=== PATIENT | female | born 1945 | race Caucasian/White ===

== ENCOUNTER → 2016-11-07 | Outpatient (CLI) | payer MEDICARE, OTHER ==
[~2016-11-07] VITALS: Ht 165.1 cm; Wt 88.6 kg
[~2016-11-07] MED LIST: ATACAND32 MG PO; CALCIUM 600/VIT1 CAP PO; FOLIC ACID 40400 MCG PO; HUMIRA40 MG/0.8 SQ; MASON NATURAL2000 IU PO; MULTI VITAMINS1 TAB PO; NATURAL E400 IU PO; PRILOSEC 20MG20 MG PO; THE MEDICINE S200 M2 PO; TREXALL10 MG PO; VYTORIN 10 MG-21 TAB PO
[2016-11-07 06:01] VITALS: BP 163/84; PULSE 64
[2016-11-07 07:35] VITALS: BP 180/90; PULSE 61
[2016-11-07 07:38] VITALS: BP 180/92; PULSE 102
[2016-11-07 07:40] VITALS: BP 178/88; PULSE 81
== END ==
LOC: COL.CARD 05:45
DX: I25.10 Atherosclerotic heart disease of native coronary artery without angina pectoris (principal); K21.9 Gastro-esophageal reflux disease without esophagitis; E78.00 Pure hypercholesterolemia, unspecified; I10 Essential (primary) hypertension; M06.9 Rheumatoid arthritis, unspecified
CPT/HCPCS: A9502; J2785

== ENCOUNTER → 2018-01-23 | Outpatient (CLI) | payer MEDICARE, OTHER | LOC: MC.RAD 14:25 | DX: Z12.31 Encounter for screening mammogram for malignant neoplasm of breast (principal) ==

== ENCOUNTER 2018-05-27 15:46 | Day surgery (SDC) | payer MEDICARE, OTHER ==
[~2018-05-27] VITALS: Ht 167.6 cm; Wt 90.9 kg
[~2018-05-27 15:46] MED LIST changes: +ATACAND HCT 321 TAB PO; -ATACAND32 MG PO; -CALCIUM 600/VIT1 CAP PO; +CALCIUM 600MG+D1 TAB PO; +FOLIC ACID 11 MG/TA1 PO; -FOLIC ACID 40400 MCG PO; +METHOTREXA2.5 MG/TAB PO; -TREXALL10 MG PO
[2018-05-27 16:48] VITALS: BP 168/71; PULSE 60; TEMP 97.7
--- NOTE | 2018-05-27 18:45 | NUR ---
Patient up to restroom without any difficulties or complications. Patient back to room and cart resting comfortably with spouse at bedside.
--- NOTE | 2018-05-27 19:40 | NUR ---
Patient resting comfortably in room with spouse at bedside. Patient report and care given to HARMONY Durbin. Patient is still waiting to go to surgery.
[2018-05-27 23:00] VITALS: BP 172/69; PULSE 64; TEMP 97.4
--- NOTE | 2018-05-27 23:00 | NUR ---
Pt. arrived to the floor from PACU. Pt. able to transfer from stetcher to bed with standby assist. Pt. is A&OX3, assessment complete. IV to lt. hand patent, IV fluids infusing per orders. Vital signs stable. Pt. reports pain at a 2 on pain scale, pt. denies need for pain meds at this time. Call light within reach.
[2018-05-27 23:15] VITALS: BP 156/58; PULSE 51
[2018-05-27 23:30] VITALS: BP 169/63; PULSE 52
[2018-05-28] VITALS: BP 156/68; PULSE 60
[2018-05-28 00:30] VITALS: BP 147/63; PULSE 52
--- NOTE | 2018-05-28 00:45 | NUR ---
Pt. has met discharge criteria. Pt. voided, tolerating po and ambulating. Vitals stable. Pt. reports pain at a 2, pt. denies need for pain meds. Pt. given discharge instructions, scripts, education, and health summary. Information reviewed with pt. and questions answered. Pt. denies further needs. INT discontinued from lt. hand. Pt. getting dressed will call when ready to go.
--- NOTE | 2018-05-28 01:00 | NUR ---
Pt. called. Pt. escorted out with wheelchair by SARMAD Mars.
== END 2018-05-28 01:00 | disposition home or self-care (01) ==
LOC: SDCO 15:46 → SURG 23:06 → SDCO 05-28 01:00
DX: N20.1 Calculus of ureter (principal); J30.9 Allergic rhinitis, unspecified; I10 Essential (primary) hypertension; K21.9 Gastro-esophageal reflux disease without esophagitis; E78.5 Hyperlipidemia, unspecified; E78.00 Pure hypercholesterolemia, unspecified; E11.9 Type 2 diabetes mellitus without complications; M06.861 Other specified rheumatoid arthritis, right knee; Z96.652 Presence of left artificial knee joint; Z79.82 Long term (current) use of aspirin; Z88.5 Allergy status to narcotic agent; Z82.3 Family history of stroke; Z83.3 Family history of diabetes mellitus; Z82.49 Family history of ischemic heart disease and other diseases of the circulatory system; Z82.61 Family history of arthritis; Z86.718 Personal history of other venous thrombosis and embolism
CPT/HCPCS: OP; C1769; C2617; J0360; J0690; J2405; J3010; J7120; Q9967

== ENCOUNTER 2018-12-19 10:30 | Inpatient (IN) | payer MEDICARE, OTHER ==
[~2018-12-19] VITALS: Ht 165.1 cm; Wt 88.9 kg
[2018-12-19] VITALS (107 sets, daily range): BP systolic 127–152; BP diastolic 54–75; PULSE 95–120; TEMP 98–102.9; O2SAT 95–99
[2018-12-19] MEDS ORDERED: SIMPONI50 MG/0.5 SC (15:16)
[2018-12-19] MEDS ORDERED: LEVAQUIN 5500 MG/TA1 PO (15:17)
[2018-12-19] MEDS ORDERED: NIZORAL CR 30GM TOP (15:18)
[2018-12-19] MEDS ORDERED: TEMOVATE0.052 TOP (15:19)
[2018-12-19 17:49] LABS: ALBUMIN 3.4 gm/dL (3.5-5.0); BILIRUBIN,TOTAL 0.8 mg/dL (0.0-1.0); CALCIUM 8.6 mg/dL (8.4-10.2); CREATININE, serum 0.84 (0.52-1.25); POTASSIUM 4.2 mmol/L (3.4-5.0); TOTAL PROTEIN 7.6 gm/dL (6.4-8.2)
[2018-12-19 17:54] LABS: BASO # 0.1 (0.0-0.2); BASO % 0.6 % (0.0-2.0); EOS % 0.4 % (0-4.0); GRAN # 5.4 (1.4-6.5); GRAN % 58.2 % (42.2-75.2); HEMATOCRIT 39.2 % (37.0-47.0); HEMOGLOBIN 12.7 g/dl (12.5-16.0); LYMPH % 31.7 % (20.0-51.0); MEAN CELL VOLUME 93 fl (80.0-100.0); MEAN CORPUSCULAR HEMOGLOBIN 30 pg (27.0-31.0); MEAN CORPUSCULAR HGB CONC 32 g/dl (33.0-37.0); MONO # 0.8 (0.1-0.6); MONO % 8.5 % (1.7-9.3); PLATELET COUNT 171 K/mm3 (130-400); RED BLOOD COUNT 4.22 M/mm3 (4.10-5.30); REDCELL DISTRIBUTION WIDTH-CV 15.3 % (11.5-14.5)
--- NOTE | 2018-12-19 18:00 | NUR ---
STARTED HEPARIN GTT, AND ADMINSITERED BOLUS. PT HAD NOT ISSUES. A BESIDE. PT AND EDUCATED ABOUT HEPARIN GTT. NO QUESTIONS OR ISSUES VOICED
[2018-12-19 18:05] LABS: PARTIAL THROMBOPLASTIN TIME 33.8 SECONDS (26.0-37.0)
--- NOTE | 2018-12-19 21:58 | NUR ---
Pt tranfered down from 308. Pt transfered to bed and placed on ICU monitors. Pt is SR on tele. Pt is afebrile and sating well on 4L NC. Pt is AxOx4. Pt oriented to room and ICU. Anca DEL CID and bedside to eval pt. Heparin drip running through L wrist IV at 15.5ml/hr. Will continue to monitor.
[2018-12-19 22:04] LABS: BASO # 0.1 (0.0-0.2); BASO % 0.7 % (0.0-2.0); EOS # 0.1 (0.0-0.7); EOS % 0.5 % (0-4.0); GRAN # 5.8 (1.4-6.5); GRAN % 55.3 % (42.2-75.2); LYMPH # 3.3 (1.2-3.4); LYMPH % 31.8 % (20.0-51.0); MEAN CELL VOLUME 91 fl (80.0-100.0); MEAN CORPUSCULAR HEMOGLOBIN 31 pg (27.0-31.0); MEAN CORPUSCULAR HGB CONC 33 g/dl (33.0-37.0); MEAN PLATELET VOLUME 10.8 fl (7.4-10.4); MONO # 1.2 (0.1-0.6); MONO % 11.1 % (1.7-9.3); PLATELET COUNT 190 K/mm3 (130-400); RED BLOOD COUNT 3.94 M/mm3 (4.10-5.30)
[2018-12-19 22:05] LABS: HEMATOCRIT 35.9 % (37.0-47.0)
[2018-12-19 22:11] LABS: ALANINE AMINOTRANSFERASE 51 U/L (9-52); ALKALINE PHOSPHATASE 92 U/L (50-136); ANION GAP 7 mmol/L (7-16); AST,SGOT 59 U/L (15-37); BILIRUBIN,TOTAL 0.8 mg/dL (0.0-1.0); BLOOD UREA NITROGEN 21 mg/dL (7-17); CALCIUM 8.5 mg/dL (8.4-10.2); CARBON DIOXIDE 24 mmol/L (22-30); CHLORIDE 101 mmol/L (98-107); CREATININE, serum 0.77 (0.52-1.25); GLUCOSE 101 mg/dL (74-106); MAGNESIUM 1.9 mg/dL (1.6-2.3); POTASSIUM 4.3 mmol/L (3.4-5.0); SODIUM 132 mmol/L (137-145); TOTAL PROTEIN 6.9 gm/dL (6.4-8.2)
[2018-12-19 22:24] LABS: TROPONIN-I < 0.012 ng/mL (0.000-0.035)
[2018-12-19 22:26] LABS: ARTERIAL BLD GAS O2 SATURATION 96.6 % (92-100); ARTERIAL BLD GAS TCO2 CT 23.6; ARTERIAL BLOOD GAS BASE EXCESS 0.2 (-2-2); ARTERIAL BLOOD GAS HCO3 22.6 meq/L (22-26); ARTERIAL BLOOD GAS PCO2 30.3 mmHg (35-45); ARTERIAL BLOOD GAS PO2 84.3 mmHg (80-100); ARTERIAL BLOOD GAS pH 7.49 (7.35-7.45)
--- NOTE | 2018-12-19 22:47 | NUR ---
1899: Patient siiting up in bed visiting with . Presents with relaxed body posture, mild increased work of breathing with respiratory rate 18-24bpm. Denies c/o shortness of breathe. Plan of care for the night to include management of heparin drip reviewed with patient and . All questions and concerns answered. 2024: Report from RT that patient was c/o increased work of breathing with O2 saturations in mid 80's on room air. 4LO2/NC applied. Tacycardic 115-125. RT reports improvement of O2 saturations in the mid 90"s 2039: See flow sheet for FVS obtained with temperature 102.9 orally, HR 120 (ST on telemetry). Patient presents as Tachypnic with respiratory rate 28-35bpm. Flushed. Petichial rash to bilateral U/L extremities. 2047: Call to Anca MACK notified of above documentation. Enroute to floor at this time. Orders received for Tylenol 650mg PO and Fluid bolus 1000ml over 1hr. Pumology/Allied Health Instructor notified by Anca MACK. notified by Provider. Order received to transfer to ICU. 2102: Call to warehouse guard notified of order received to transfer to ICU. Patient notified of transfer and reason, agrees to transfer. 2103: LAB notified of STAT orders. 2125: Report given to Daniel ANTUNEZ in ICU. 2144: Patient transferred to ICU room 8. ransferred via bed by this nurse and PCT. See Flowsheet for FVS obtained at transfer. meet patient in ICU.
[2018-12-20] VITALS (709 sets, daily range): BP systolic 97–142; BP diastolic 54–82; PULSE 90–113; TEMP 97.5–99.2; O2SAT 60–100
[2018-12-20 00:53] LABS: CALCIUM 8.6 mg/dL (8.4-10.2); CREATININE, serum 0.91 (0.52-1.25); POTASSIUM 4.2 mmol/L (3.4-5.0)
--- NOTE | 2018-12-20 04:55 | NUR ---
PT HAS NOT VOIDED SINCE ARRIVING TO ICU AT 2100. PT HAD A LARGE VOID PRIOR TO COMING DOWN. PT HAS PURWICK IN PLACE. PT STATES NO URGENCY TO VOID. PT BLADDER SCANNED WITH RESULT OF 23ML. [facility] CALLED AND SPOKE WITH ANNALISA ANTUNEZ. NO NEW ORDERS RECEIVED. WILL CONTINUE TO [facility].
--- NOTE | 2018-12-20 07:18 | NUR ---
Vancomycin Initial Dosing Pharmacy Note Ordering provider: Chavez Davis MD Indication/duration: Pneumonia, 7 days Relevant comorbidities: Bilateral PE w/ pulmonary infarcts, h/o recent RUL PNA s/p course of Levaquin LABS: WBC 10.5, SCr0.91, CrCl~53, GFR 61 Recommendation: Start Vancomcyin 1.25 gm IV q12h after received Vancomycin 2 gm IV x1 load. Pharmacy will continue to [facility]. Checking a Vancomycin trough on 12/22/18. Loading dose: 2 grams Maintenance dose: 1.25 grams every 12 hours Trough goal: 15-20 ug/mL
--- NOTE | 2018-12-20 10:09 | NUR ---
PT A&O X4. DENIES PAIN, BUT STATES THAT SHE IS SOB. PT RR 48 AND HR 110. PROVIDER NOTIFIED, CHEST X-RAY ORDERED.
--- NOTE | 2018-12-20 12:18 | NUR ---
Admissions Representative stopped by and offered prayer and support with patient.
--- NOTE | 2018-12-20 15:00 | NUR ---
PT BLADDER SCANNED AND APPROX 909ML URINE BEING RETAINED. PROVIDER CONTACTED AND DIRECTED THAT PT BE STRAIGHT CATHED. PT STRAIGHT CATHED AND 925ML OF URINE OUT, PT TOLERATED WELL, PT STATES SHE FEELS BETTER. BEN CARE PROVIDED, SHREYAS REPLACED.
[2018-12-20 16:04] LABS: COLLECTION METHOD CLEAN CATCH
[2018-12-20 16:22] LABS: MUCOUS Present /lpf; PH 5 (5-8); SQUAMOUS EPITHELIAL None Seen /hpf; URINE APPEARANCE Hazy; URINE BACTERIA None Seen /hpf; URINE BILIRUBIN Negative (NEGATIVE); URINE BLOOD 1+ (NEGATIVE); URINE CALCIUM OXALATE CRYSTAL Present /hpf; URINE COLOR Amber; URINE GLUCOSE Negative (NEGATIVE); URINE KETONE Negative (NEGATIVE); URINE LEUKOCYTE ESTERASE Negative (NEGATIVE); URINE NITRATE Negative (NEGATIVE); URINE PROTEIN(semi-quant) 1+ (NEGATIVE); URINE UROBILINOGEN Negative (NEGATIVE)
--- NOTE | 2018-12-20 18:00 | NUR ---
PT BLADDER SCANNED. PT RETAINING APPROX 242ML OF URINE. PROVIDER NOTIFIED AND ORDERS INDWELLING CATHETER TO BE PLACED.
--- NOTE | 2018-12-20 19:00 | NUR ---
REPORT GIVEN TO HARMONY WOODY BEDSIDE.
--- NOTE | 2018-12-20 19:10 | NUR ---
Bedside report received from Cassandra ANTUNEZ. Pt alert and oriented. Reports SOA and requests breathing treatment. Denies any current pain or concerns.
[2018-12-21] VITALS (825 sets, daily range): BP systolic 108–158; BP diastolic 57–92; PULSE 89–120; TEMP 97.8–100.5; O2SAT 72–100
--- NOTE | 2018-12-21 01:00 | NUR ---
Upon entering the pts room at 2350 pt requested Tylenol. Temp was obtained at 103.1 orally. Pt reported shivers although denies any further symptoms as feeling cold, although reported feeling hot. No dizziness or nausea at this time. Tylenol was administered per PRN order. Serial temps were completed until resolved. 1215- 102.5, 1235- 100.5, 0100- 99.3. Cool wash cloth was placed on the pts head, all but the sheet for blankets removed, as well as fan turned on at time of Tylenol administration.
[2018-12-21 05:14] LABS: MEAN CELL VOLUME 93 fl (80.0-100.0); MEAN CORPUSCULAR HGB CONC 32 g/dl (33.0-37.0); MEAN PLATELET VOLUME 10.1 fl (7.4-10.4); PLATELET COUNT 197 K/mm3 (130-400); REDCELL DISTRIBUTION WIDTH-CV 15.2 % (11.5-14.5)
[2018-12-21 05:18] LABS: HEMATOCRIT 29.7 % (37.0-47.0); HEMOGLOBIN 9.6 g/dl (12.5-16.0); MEAN CORPUSCULAR HEMOGLOBIN 30 pg (27.0-31.0)
[2018-12-21 05:26] LABS: CALCIUM 7.6 mg/dL (8.4-10.2); CREATININE, serum 0.69 (0.52-1.25); POTASSIUM 3.8 mmol/L (3.4-5.0)
[2018-12-21 05:39] LABS: ANISOCYTOSIS 1+; EOSINOPHIL 2 % (0-4); HYPOCHROMIA 1+; LYMPHOCYTE 18 % (20.0-51.0); NEUTROPHILS 66 % (42.0-75.2); PLATELET ESTIMATE NORMAL (NORMAL)
--- NOTE | 2018-12-21 06:35 | NUR ---
Report provided to Annette Perales RN.
--- NOTE | 2018-12-21 06:35 | NUR ---
Report recieved from HARMONY Bridges. Patient denies needs or pain at this time. 3L O2 in place per NC. MIVF and heparin running at ordered rate. Care assumed.
--- NOTE | 2018-12-21 09:37 | NUR ---
Dr. Washington rounds at this time. Orders as entered CPOE. MIVF discontinued per VORB at bedside. Care ongoing.
[2018-12-21 10:26] LABS: MEAN CELL VOLUME 93 fl (80.0-100.0); MEAN CORPUSCULAR HEMOGLOBIN 30 pg (27.0-31.0); MEAN CORPUSCULAR HGB CONC 32 g/dl (33.0-37.0); PLATELET COUNT 201 K/mm3 (130-400); RED BLOOD COUNT 3.32 M/mm3 (4.10-5.30); REDCELL DISTRIBUTION WIDTH-CV 15.4 % (11.5-14.5)
[2018-12-21 10:27] LABS: HEMATOCRIT 30.9 % (37.0-47.0)
--- NOTE | 2018-12-21 13:52 | NUR ---
Patient lives at home with her (Sj Moss [phone]) in [place], [place] and plans to return home upon recovery. Patient is mostly independent with daily living activities and has a walker to use for mobility as needed. Patient's primary care physician is Dr. Tiffany Bush, her pharmacy is [facility], and she does not have advance directives completed or on file at this time but has discussed her wants with her spouse. Patient is retired from civil duties and there are no further needs at this time.
[2018-12-22] VITALS (922 sets, daily range): BP systolic 104–150; BP diastolic 44–78; PULSE 83–123; TEMP 98–101.5; O2SAT 59–100
--- NOTE | 2018-12-22 00:45 | NUR ---
T 101.5 orally. Denied offer for tylenol. Requested to have fan turned on, blankets removed and cool cloth to forehead. Will re-assess temp. Patient reports dyspnea is at baseline. Has been tachypneic during this shift ranging from upper 20's to upper 30's. Jero 39-42. Patient reported that increased resirations occurred when she spiked a temp during the day, and improved when temp decreased. Will continue to monitor.
--- NOTE | 2018-12-22 01:21 | NUR ---
Re-assessed temp; down to 100.1. Patient agreed to take tylenol at this time. RT called for a breathing treatment.
--- NOTE | 2018-12-22 03:14 | NUR ---
Patient starting having a few episodes of ST to possible a-fib RVR rate 130's up to 170. Episodes brief lasting less than 30 seconds. Notified hospitalist; received order to give metoprolol IV 2.5 mg, 325 aspirin and Midodrine 5 mg po if BP less systolic less than 100 after giving metoprolol. Temp currenlty within normal limits. Patient denies any new complaints. SOB remains at baseline and RR mid 20's and 02 94% on 3L.
--- NOTE | 2018-12-22 04:50 | NUR ---
Reports feeling that breathing is "better" since receiving the IV lasix. RR down to mid 20'2, and 02 maintaining mid 90's. Wheezes no longer auscultated in upper lung [place].
[2018-12-22 05:09] LABS: BASO # 0.1 (0.0-0.2); BASO % 0.5 % (0.0-2.0); EOS # 0.1 (0.0-0.7); EOS % 0.9 % (0-4.0); GRAN # 6.1 (1.4-6.5); GRAN % 63.1 % (42.2-75.2); LYMPH # 2.3 (1.2-3.4); LYMPH % 23.1 % (20.0-51.0); MEAN CELL VOLUME 91 fl (80.0-100.0); MEAN CORPUSCULAR HGB CONC 33 g/dl (33.0-37.0); MEAN PLATELET VOLUME 10.1 fl (7.4-10.4); MONO # 1.2 (0.1-0.6); MONO % 11.8 % (1.7-9.3); PLATELET COUNT 234 K/mm3 (130-400); RED BLOOD COUNT 3.29 M/mm3 (4.10-5.30); REDCELL DISTRIBUTION WIDTH-CV 15.3 % (11.5-14.5)
[2018-12-22 05:10] LABS: HEMOGLOBIN 9.8 g/dl (12.5-16.0); MEAN CORPUSCULAR HEMOGLOBIN 30 pg (27.0-31.0)
[2018-12-22 05:19] LABS: CALCIUM 7.9 mg/dL (8.4-10.2); CREATININE, serum 0.7 (0.52-1.25); POTASSIUM 3.4 mmol/L (3.4-5.0)
--- NOTE | 2018-12-22 07:34 | NUR ---
Report given to HARMONY Camejo. Patient care transfered.
--- NOTE | 2018-12-22 16:00 | NUR ---
Pt arrived to room 310 from the ICU via w/c. She is awake and A/Ox4, she is able to transfer from w/c to bed with SBA. Saline locks to left wrist and FA are free of complications. Pt was transfered up on 2L O2 per NC, sats 85-88%, increased to 3L O2 by Ilene, RT. Pt dyspneic at rest. Pt and oriented to room and to staff, expressed understanding. Denies any other needs.
--- NOTE | 2018-12-22 19:13 | NUR ---
Vancomycin Follow-up Pharmacy Note Current regimen: 1.25 grams Q12H Vancomycin trough: 10.85 drawn 15 minutes after start of an infusion Adjustments: changing regimen to 1 gram Q8h with a desired trough level of 15-20. Trough lab ordered for 12/24/18 at 12:30. Will continue to follow.
--- NOTE | 2018-12-22 21:15 | NUR ---
Resting in bed. Assessment completed. Right lower lobe crackles otherwise clear. Patient dyspnic with rest, oxygen saturation 89% on 3 liters. Respiratory contacted for breathing treatment. Patient overall apperance is flush. Patient states "I usually get like this at night." Patient denies pain at this time. Pulse 120 on telemetry and dynamap. Bilateral lower leg edema +2. Parsons catheter in place to dependent drainage. Denies other needs at this time. Will monitor.
--- NOTE | 2018-12-22 21:41 | NUR ---
Respiratory in room. Reports patient more flushed that previous assessment. Assessed patient. Skin warm and red. Patient temperature 99.9, patient tachypnic. Stopped vancomycin infusion. Contacted Dr. Reyes. Hold vanco, 50mg IV benadryl and 125mg IV solumedrol now.
--- NOTE | 2018-12-22 22:27 | NUR ---
Patient oxygen saturation 89%. Increased to 4.5 liters of oxygen. Patient very tachypnic, respiratory rate 30. Inability to speak without difficulty. Patient continues to be red and flushed temp 99.1. Updated Dr. Bowser. Given Epipen and may need to transfer to the unit. House supervisior updated-obtaining epipen from pharmacy
[2018-12-23] VITALS (9 sets, daily range): BP systolic 123–141; BP diastolic 56–81; PULSE 51–102; TEMP 95.9–98.9
--- NOTE | 2018-12-23 01:20 | NUR ---
Patient resting. Diaphoretic at this time. Temp 97.3. Patient reports "feeling better." Will continue to monitor. Respirations 24, Oxygen saturation 96% on 4.5 liters.
--- NOTE | 2018-12-23 02:05 | NUR ---
Resting in bed. Continues to be diaphoretic and afebrile. Denies needs. Call light in reach. Will monitor.
--- NOTE | 2018-12-23 03:45 | NUR ---
Resting in bed. Patient no longer flushed. No fever. Denies needs at this time. Call light in reach.
--- NOTE | 2018-12-23 05:34 | NUR ---
Patient cool to touch. Temperature 96.2 axillary and oral temperature obtained with difficulty-temperature 95.6. Provided patient with warm blankets and turned on air coniditioning in room at this time. Will reassess temp in 30 mins.
[2018-12-23 06:12] LABS: BASO % 0.1 % (0.0-2.0); GRAN % 82.1 % (42.2-75.2); LYMPH % 14.2 % (20.0-51.0); MEAN CELL VOLUME 92 fl (80.0-100.0); MEAN CORPUSCULAR HGB CONC 33 g/dl (33.0-37.0); MEAN PLATELET VOLUME 10.4 fl (7.4-10.4); MONO # 0.2 (0.1-0.6); PLATELET COUNT 259 K/mm3 (130-400); REDCELL DISTRIBUTION WIDTH-CV 15.4 % (11.5-14.5)
[2018-12-23 06:16] LABS: HEMATOCRIT 29.5 % (37.0-47.0); HEMOGLOBIN 9.6 g/dl (12.5-16.0); MEAN CORPUSCULAR HEMOGLOBIN 30 pg (27.0-31.0)
[2018-12-23 06:37] LABS: CALCIUM 8.3 mg/dL (8.4-10.2); CREATININE, serum 1.3 (0.52-1.25); POTASSIUM 4.8 mmol/L (3.4-5.0)
--- NOTE | 2018-12-23 07:20 | NUR ---
Report given to HARMONY Spangler
--- NOTE | 2018-12-23 08:50 | NUR ---
Pt alert and oriented. Pt feeling much better this am. Pt IV's patent no redness or infiltration noted. Pt cares provided this am. Pt had soft BM this am. Pt pericares provided.Pt catheter care also provided this am. Pt x1 assist to BSC this am. Pt denies dizziness or increased pain. Pt does report slight headache but denied Tylenol at this time. Pt temp better this am and WNL at VS monitored this am. Pt spouse at bedside this am. Pt remains on oxygen via nasal cannula. Pt SOB with minimal activity. Pt has call light in reach and denies needs. Pt ate 100% breakfast. Pt churchill patent with yellow urine noted.
[2018-12-23 12:08] LABS: COLLECTION METHOD CLEAN CATCH
[2018-12-23 12:19] LABS: MUCOUS Present /lpf; PH 6 (5-8); SQUAMOUS EPITHELIAL None Seen /hpf; URINE APPEARANCE Clear; URINE BACTERIA Rare /hpf; URINE BILIRUBIN Negative (NEGATIVE); URINE BLOOD 2+ (NEGATIVE); URINE COLOR Yellow; URINE GLUCOSE 2+ (NEGATIVE); URINE KETONE Negative (NEGATIVE); URINE LEUKOCYTE ESTERASE Negative (NEGATIVE); URINE NITRATE Negative (NEGATIVE); URINE PROTEIN(semi-quant) Negative (NEGATIVE); URINE RBC 20-50 /hpf; URINE UROBILINOGEN Negative (NEGATIVE)
--- NOTE | 2018-12-23 16:55 | NUR ---
Pt stable this afternoon. Pt remains on Zosyn as ordered and tolerating without issue. Pt alert and oriented. Pt ambulates with walker and SBA to bathroom and chair. Pt Parsons catheter discontinued this afternoon and pt voiding independently without issue. Pt has call light in reach and sitting in chair with spouse and friend at bedside. Pt pain managed with PRN Tylenol. Pt IV no infiltration or redness noted with fluids running per orders. Pt denies needs at this time.
--- NOTE | 2018-12-23 19:23 | NUR ---
pt report given to Bhargavi ANTUNEZ.
--- NOTE | 2018-12-23 20:30 | NUR ---
Telemetry called stating patient pulse 130-160 at times. Assessed patient. VS stable. Patient stated overwhelmed with texting family and updating family. Patient pulse returned to baseline after texting stopped. Assessment completed. Right lower lobe diminshed otherwise clear. Heart sounds irregular and tachy at this time. Pulses strong throughout. No edema noted at this time. Parsons catheter removed earlier today-urinated 600 ml of clear yellow urine. Denies pain at this time. Denies needs. Call light in reach.
--- NOTE | 2018-12-23 22:40 | NUR ---
Patient provided with PRN tylenol for 5/10 headache.
[2018-12-24] VITALS (7 sets, daily range): BP systolic 123–151; BP diastolic 61–73; PULSE 91–130; TEMP 96.7–97.9
--- NOTE | 2018-12-24 | NUR ---
Patient resting in bed. Reports headache resolved. Request uninterrupted sleep. Educated patient to report any change in condition such as SOA, dizziness, lightheaded, etc. Patient reports understanding. Explained to patient will need to do 0400 vital signs. Patient agrees. Denies other needs at this time. Call light in reach.
[2018-12-24 06:44] LABS: BASO % 0.2 % (0.0-2.0); GRAN # 10.3 (1.4-6.5); GRAN % 83.1 % (42.2-75.2); LYMPH % 8.4 % (20.0-51.0); MEAN CELL VOLUME 92 fl (80.0-100.0); MEAN CORPUSCULAR HGB CONC 33 g/dl (33.0-37.0); MEAN PLATELET VOLUME 10.1 fl (7.4-10.4); MONO # 0.9 (0.1-0.6); MONO % 7.3 % (1.7-9.3); PLATELET COUNT 307 K/mm3 (130-400); RED BLOOD COUNT 3.12 M/mm3 (4.10-5.30); REDCELL DISTRIBUTION WIDTH-CV 15.5 % (11.5-14.5)
--- NOTE | 2018-12-24 06:44 | NUR ---
Patient had uneventful night. Resting in bed this AM. Denies needs. Call light in reach.
[2018-12-24 06:46] LABS: HEMATOCRIT 28.7 % (37.0-47.0); HEMOGLOBIN 9.4 g/dl (12.5-16.0); MEAN CORPUSCULAR HEMOGLOBIN 30 pg (27.0-31.0)
[2018-12-24 06:55] LABS: CALCIUM 8.7 mg/dL (8.4-10.2); CREATININE, serum 1.74 (0.52-1.25); POTASSIUM 3.7 mmol/L (3.4-5.0)
--- NOTE | 2018-12-24 07:21 | NUR ---
Report given to HARMONY Arciniega
--- NOTE | 2018-12-24 09:03 | NUR ---
MOSES met with the patient to review discharge plan and to discuss PT's recommendation of home health. The patient reports that she would be interested in home health. MOSES presented the patient with Medicare.gov's list of home health agencies that serve [place]. The patient chose [facility]. MOSES attempted to contact Jessie at [facility]. MOSES left her a voicemail. MOSES faxed referral. MOSES to continue to follow.
--- NOTE | 2018-12-24 09:18 | NUR ---
Jessie, at [facility], reports that they are able to accept the patient for services. SW to inform the patient and will continue to follow.
--- NOTE | 2018-12-24 09:59 | NUR ---
Pt is awake and A/Ox4, sitting up in bed finishing breakfast. She denies pain or discomfort. IVF are infusing into left FA without difficulty. Resp. are even and unlabored on 2L O2 per NC. Pt does get slighly dypneic upon exertion. Pt just finished breathing tx, heart rate up into the 140-160s per tele. HR lowers to 115 after 10-15 min. Pt denies any other needs, will monitor.
[2018-12-24 11:01] LABS: MYCOPLASMA IGM ANTIBODIES Negative (Negative)
[2018-12-24 11:01] LABS: CREATININE, serum 1.73 (0.52-1.25)
[2018-12-24 11:05] LABS: FRACTIONAL EXCRETION OF NA+ 3.4 %
--- NOTE | 2018-12-24 18:26 | NUR ---
Pt is doing well, sitting up in recliner eating supper. Tele called this RN stating pt will occassionally get into the 160s in her HR but is currently 113. EKG ordered to confirm rhythm. Doris, RT notified.
--- NOTE | 2018-12-24 20:21 | NUR ---
Shift assessment complete. Patient in chair, at bedside. Assisted patient to BR with minimal assist and walker. Slight SOB with ambulation. Back to bed, tolerated well. Denies pain. Patient also stated she would like Vancomycin placed on her allergy list in her chart d/t the reaction she had with dose, which has since been changed. Will placed Vanco on her allergy list PER PATIENT REQUEST. Denies further needs at this time. Will continue to monitor.
--- NOTE | 2018-12-24 22:38 | NUR ---
Per traffic signal technician, HR 160's intermittently. Patient in room, coughing. Notified Dr. Reyes. Iam ordered, see eMAR. HR 98 currently. Will continue to monitor.
[2018-12-25] VITALS (350 sets, daily range): BP systolic 129–149; BP diastolic 53–84; PULSE 77–153; TEMP 97.6–98.2; O2SAT 85–100
--- NOTE | 2018-12-25 04:54 | NUR ---
Patient ambulated to BR with walker and assist x1. Tolerated well. Denies pain. Denies further needs at this time. Will continue to monitor.
--- NOTE | 2018-12-25 07:30 | NUR ---
Report recieved from HARMONY Young. Pt resting in bed. IVF running at 75 mL/hour. No needs voiced at this time.
[2018-12-25 07:43] LABS: BASO % 0.1 % (0.0-2.0); EOS # 0.1 (0.0-0.7); EOS % 1.2 % (0-4.0); GRAN # 5.5 (1.4-6.5); GRAN % 66.1 % (42.2-75.2); LYMPH # 1.6 (1.2-3.4); LYMPH % 18.9 % (20.0-51.0); MEAN CELL VOLUME 93 fl (80.0-100.0); MEAN CORPUSCULAR HGB CONC 33 g/dl (33.0-37.0); MEAN PLATELET VOLUME 10.2 fl (7.4-10.4); MONO # 1.1 (0.1-0.6); MONO % 13.1 % (1.7-9.3); PLATELET COUNT 270 K/mm3 (130-400); RED BLOOD COUNT 3.02 M/mm3 (4.10-5.30); REDCELL DISTRIBUTION WIDTH-CV 15.9 % (11.5-14.5)
[2018-12-25 07:48] LABS: HEMOGLOBIN 9.1 g/dl (12.5-16.0); MEAN CORPUSCULAR HEMOGLOBIN 30 pg (27.0-31.0)
[2018-12-25 07:58] LABS: CALCIUM 9.1 mg/dL (8.4-10.2); CREATININE, serum 1.6 (0.52-1.25); POTASSIUM 3.7 mmol/L (3.4-5.0)
--- NOTE | 2018-12-25 09:21 | NUR ---
Tele called to inform this nurse that pt's HR was jumping to 200's. Checked on Pt, pt was standing with physical therapy, not walking. Pt stated she felt fine, no dizziness, no SOB, no palpitations that she noticed. This nurse then informed PA and Hospitalist of Pt's HR, EKG was ordered. Tele called again 2-3 minutes later to inform of elevated HR, informed Tele that an EKG had been ordered, Pt was asymptomatic and Hospitalist aware of Pt's HR.
--- NOTE | 2018-12-25 10:01 | NUR ---
Pt sitting in chair and assisted back in bed to be administered Cardizem bolus per order. Pt HR and BP checked prior and after. HR decreased slightly. Pt denies dizziness, SOB, palpitations. Pt appears asymptomatic. Hospitalist, PA, pharmacist all in room during administration. POC discussed with patient who verbalized understanding. Family at bedside. HR monitoring in progress.
--- NOTE | 2018-12-25 10:04 | NUR ---
SW attended clinical rounds. The patient went into A. fib with RVR. Plan is to consult cardiology. SW to continue to follow.
--- NOTE | 2018-12-25 10:19 | NUR ---
Dr. Bermeo notified of consult for pt.
--- NOTE | 2018-12-25 11:00 | NUR ---
Pt has student nurse caring for pt this morning. Medications administered by student nurse. Assessment completed. Pt laying in bed post cardizem bolus administration. Bedpan being used for voiding at this time. Pt has EDELMIRA hose to RLE, no redness or pain noted. RLE warm to touch, 2+ edema, pulses palpable. Pt on 2L NC, labored shallow breathing, increased KEATING. LFA IV w/ abx running, no complications. EKG showed Afib RVR, cardizem bolus decreased HR slightly, Dr. Bermeo in to visit with patient. pt to go to ICU today for monitoring. Pt denies concerns or needs at this time. POC discussed, pt verbalizes understanding and call light within reach.
--- NOTE | 2018-12-25 13:46 | NUR ---
PT REFUSED RT TX
--- NOTE | 2018-12-25 13:48 | NUR ---
Primary nurse was assisted with [phone] patient care by [employer] student Ariella Aguilar and [employer] instructor Winter Cox RN-.
--- NOTE | 2018-12-25 14:40 | NUR ---
Patient arrives to ICU 3 via bed. Assessment and vitals as charted. JEANNE at bedside to place PICC as ordered. Care assumed.
--- NOTE | 2018-12-25 14:54 | NUR ---
Report called to HARMONY Bryant ICU. Pt administered last dose of potassium. Pt taken down to ICU, no complications.
[2018-12-25 15:47] LABS: PROCALCITONIN 0.13 ng/mL (0.00-0.09)
[2018-12-26] VITALS (383 sets, daily range): BP systolic 117–166; BP diastolic 49–76; PULSE 57–83; TEMP 97.5–99.5; O2SAT 90–99
[2018-12-26 06:47] LABS: BASO % 0.5 % (0.0-2.0); EOS # 0.3 (0.0-0.7); EOS % 3.5 % (0-4.0); GRAN # 5.8 (1.4-6.5); GRAN % 68.8 % (42.2-75.2); LYMPH # 1.2 (1.2-3.4); LYMPH % 14.5 % (20.0-51.0); MEAN CELL VOLUME 94 fl (80.0-100.0); MEAN CORPUSCULAR HGB CONC 32 g/dl (33.0-37.0); PLATELET COUNT 346 K/mm3 (130-400); RED BLOOD COUNT 3.27 M/mm3 (4.10-5.30); REDCELL DISTRIBUTION WIDTH-CV 15.9 % (11.5-14.5)
[2018-12-26 07:00] LABS: HEMATOCRIT 30.7 % (37.0-47.0); HEMOGLOBIN 9.8 g/dl (12.5-16.0); MEAN CORPUSCULAR HEMOGLOBIN 30 pg (27.0-31.0)
[2018-12-26 07:02] LABS: CREATININE, serum 1.46 (0.52-1.25); POTASSIUM 3.8 mmol/L (3.4-5.0)
--- NOTE | 2018-12-26 08:00 | NUR ---
lab asst in room explaining procedure to patient. and daughter in room. Questions addressed, consent obtained. VSS. Denies pain.
--- NOTE | 2018-12-26 08:36 | NUR ---
SEE MERGE DOCUMENTATION FOR MEDICATION ADMINISTRATION TIMES AND INTRA/POST PROCEDURE SEDATION ASSESSMENTS.
--- NOTE | 2018-12-26 09:15 | NUR ---
REPORT RECEIVED FROM RC ANTUNEZ. PT TRANSFERRED TO [facility] 15. CARE ASSUMED.
--- NOTE | 2018-12-26 09:20 | NUR ---
PT RETURNED FROM SCREW MACHINE OPERATOR SINGLE SPINDLE VIA BED AFTER HAVING IVC FILTER INSERTED. RIGHT GROIN APPROACH UTILIZED VIA VENOUS ACCESS. DRESSING TO RIGHT GROIN CLEAN, DRY, AND INTACT. PT DENIES ANY PAIN OR SOB AT THIS TIME.
--- NOTE | 2018-12-26 09:40 | NUR ---
Following IVC filter implant, pt transferred to [facility] 15 from lab aide on portable monitor. VS monitors connected on arrival. VS's WNL. Pt A&O x3. No s/sx of distress noted. Bedside handoff to HARMONY Juan. Right femoral vein access site observed. No bleeding, oozing, brusing noted. Dressing dry and intact. Pt denies pain or sensation changes to right leg. Site soft to palpation. All question answered at this time.
--- NOTE | 2018-12-26 10:16 | NUR ---
SPOKE WITH DR VIVAS REGARDING RESUMING PT'S ELIQUIS. PROVIDER STATES PT CAN RESUME ELIQUIS AT ANY TIME. PER DR OLSON HE WOULD LIKE TO RESUME 2-3 HOURS AFTER PROCEDURE.
[2018-12-27 04:03] VITALS: BP 137/65; PULSE 64; TEMP 98.4
[2018-12-27 05:38] LABS: BASO % 0.4 % (0.0-2.0); EOS # 0.3 (0.0-0.7); EOS % 4.3 % (0-4.0); GRAN # 4.3 (1.4-6.5); LYMPH # 1.2 (1.2-3.4); LYMPH % 17.9 % (20.0-51.0); MEAN CELL VOLUME 94 fl (80.0-100.0); MEAN CORPUSCULAR HGB CONC 32 g/dl (33.0-37.0); MEAN PLATELET VOLUME 9.5 fl (7.4-10.4); MONO # 0.8 (0.1-0.6); MONO % 11.5 % (1.7-9.3); PLATELET COUNT 344 K/mm3 (130-400); REDCELL DISTRIBUTION WIDTH-CV 15.8 % (11.5-14.5)
[2018-12-27 05:43] LABS: HEMATOCRIT 29.2 % (37.0-47.0); HEMOGLOBIN 9.4 g/dl (12.5-16.0); MEAN CORPUSCULAR HEMOGLOBIN 30 pg (27.0-31.0)
--- NOTE | 2018-12-27 05:50 | NUR ---
Pt's morning EKG shows prolonged QTc. Will endorse to day RN to notify Cardiology prior to giving 0900 dose of Amiodarone.
[2018-12-27 05:51] LABS: CALCIUM 8.6 mg/dL (8.4-10.2); CREATININE, serum 1.48 (0.52-1.25); MAGNESIUM 1.3 mg/dL (1.6-2.3); POTASSIUM 3.7 mmol/L (3.4-5.0)
--- NOTE | 2018-12-27 07:00 | NUR ---
Report recieved from HARMOYN Ventura. Patient denies needs at this time. MIVF running at ordered rate to uncomlicated AUBREY PICC. Care assumed at this time.
[2018-12-27 08:11] VITALS: BP 147/66; PULSE 75; TEMP 97.6
[2018-12-27 08:53] LABS: TB GOLD INTERPRETATION Indeterminate (Negative)
--- NOTE | 2018-12-27 09:50 | NUR ---
Patient ambulates with PT at this time with use of walker and portable O2. Cardiac monitoring maintained via telemetry. Care ongoing.
--- NOTE | 2018-12-27 11:25 | NUR ---
Dr. Subramanian rounds at this time. Orders as entered CPOE.
[2018-12-27 11:42] VITALS: BP 150/72; PULSE 63; TEMP 97.8
--- NOTE | 2018-12-27 12:02 | NUR ---
Dr. Hernandez rounds at this time. Agrees with POC to transfer patient to medical floor today. Any new orders entered CPOE.
--- NOTE | 2018-12-27 12:52 | NUR ---
Report called to HARMONY Ulloa.
--- NOTE | 2018-12-27 14:08 | NUR ---
Patient transferred to medical room 352 via WC. Chart and all belongings sent with. Patient left in bed in low and locked position, call light within reach, rails up x2. HARMONY Ulloa notified of patient arrival.
--- NOTE | 2018-12-27 15:17 | NUR ---
Patient transferred from ICU, was assisted to bed and is resting with family at bedside. Ice water has been provided. Patient's daughter reports that patient's nose has gotten very dry with oxygen use and she had used a humidifier while in the ICU. RT was notified and one has been placed for patient. Pure wick catheter has been utilized while in the ICU. This has been replaced. Patient denies having pain. Lungs are clear to bilateral upper lobes. Right sided crackles are noted to the lower lobes. Respirations are even and nonlabored. Becomes short of breath with activity but rebounds quickly. Abdomen is soft and nontender, bowel sounds are active. Is noted to have a knee high dash hoe to the right leg. Denies pain or tenderness to her calves. Legs both have trace edema. No needs identified, call light and personal items are within reach.
[2018-12-27 15:22] VITALS: BP 146/59; PULSE 70; TEMP 98
--- NOTE | 2018-12-27 17:58 | NUR ---
Patient is awake and alert in room, family has left for the night. IV antibiotic is infusing. Denies pain. Call light and personal belongings are within reach.
[2018-12-27 20:20] VITALS: BP 148/55; PULSE 73; TEMP 99.2
--- NOTE | 2018-12-27 20:55 | NUR ---
Upon assessment patient is resting comfortably in bed watching tv. Denies pain or n/v, SOB. Oxygen at 3.[address] PICC to right upper arm, Jelly atkinson. Patient has an external catheter, new placed by day shift at 1600. Tele in place, NSR at 70. No other needs reported/observed.
[2018-12-28 00:54] VITALS: BP 145/62; PULSE 62; TEMP 98
--- NOTE | 2018-12-28 04:30 | NUR ---
Patient rested comfortably throughout the night. External catheter changed and cannister emptied for 500 ml. Pericare provided. No other needs reported/observed.
[2018-12-28 04:45] VITALS: BP 129/53; PULSE 64; TEMP 98.4
[2018-12-28 06:04] LABS: BASO % 0.5 % (0.0-2.0); EOS # 0.2 (0.0-0.7); EOS % 3.8 % (0-4.0); GRAN # 3.4 (1.4-6.5); GRAN % 61.7 % (42.2-75.2); LYMPH # 1.1 (1.2-3.4); LYMPH % 19.2 % (20.0-51.0); MEAN CELL VOLUME 95 fl (80.0-100.0); MEAN CORPUSCULAR HGB CONC 32 g/dl (33.0-37.0); MEAN PLATELET VOLUME 9.6 fl (7.4-10.4); MONO # 0.8 (0.1-0.6); MONO % 14.1 % (1.7-9.3); PLATELET COUNT 344 K/mm3 (130-400); REDCELL DISTRIBUTION WIDTH-CV 15.7 % (11.5-14.5)
[2018-12-28 06:08] LABS: HEMATOCRIT 29.4 % (37.0-47.0); HEMOGLOBIN 9.3 g/dl (12.5-16.0); MEAN CORPUSCULAR HEMOGLOBIN 30 pg (27.0-31.0)
[2018-12-28 06:14] LABS: CALCIUM 8.4 mg/dL (8.4-10.2); CREATININE, serum 1.42 (0.52-1.25); POTASSIUM 3.7 mmol/L (3.4-5.0)
[2018-12-28 07:28] VITALS: BP 142/62; PULSE 66; TEMP 97.9
--- NOTE | 2018-12-28 10:15 | NUR ---
Patient is awake and alert in room visiting with . Call light and personal items are within reach.
[2018-12-28 11:47] VITALS: BP 141/60; PULSE 65; TEMP 97.7
[2018-12-28 16:22] VITALS: BP 148/60; PULSE 70; TEMP 98.3
--- NOTE | 2018-12-28 18:13 | NUR ---
Patient is resting in bed, denies pain, call light is within reach.
[2018-12-28 19:32] VITALS: BP 118/44; PULSE 74; TEMP 98.7
[2018-12-29] VITALS: BP 137/57; PULSE 63; TEMP 98.4
[2018-12-29 04:00] VITALS: BP 151/59; PULSE 64; TEMP 98.1
[2018-12-29 06:07] LABS: BASO % 0.4 % (0.0-2.0); EOS # 0.2 (0.0-0.7); EOS % 3.1 % (0-4.0); GRAN # 2.6 (1.4-6.5); GRAN % 54.2 % (42.2-75.2); LYMPH # 1.3 (1.2-3.4); LYMPH % 26.5 % (20.0-51.0); MEAN CELL VOLUME 94 fl (80.0-100.0); MEAN CORPUSCULAR HGB CONC 31 g/dl (33.0-37.0); MEAN PLATELET VOLUME 9.5 fl (7.4-10.4); MONO # 0.8 (0.1-0.6); MONO % 15.4 % (1.7-9.3); PLATELET COUNT 328 K/mm3 (130-400); RED BLOOD COUNT 3.21 M/mm3 (4.10-5.30); REDCELL DISTRIBUTION WIDTH-CV 15.6 % (11.5-14.5)
[2018-12-29 06:17] LABS: ALBUMIN 2.7 gm/dL (3.5-5.0); BILIRUBIN,TOTAL 0.5 mg/dL (0.0-1.0); CALCIUM 8.7 mg/dL (8.4-10.2); CREATININE, serum 1.3 (0.52-1.25); POTASSIUM 3.7 mmol/L (3.4-5.0); TOTAL PROTEIN 6.4 gm/dL (6.4-8.2)
[2018-12-29 06:26] LABS: HEMATOCRIT 30.1 % (37.0-47.0); HEMOGLOBIN 9.4 g/dl (12.5-16.0); MEAN CORPUSCULAR HEMOGLOBIN 29 pg (27.0-31.0)
[2018-12-29 06:45] LABS: MAGNESIUM 1.4 mg/dL (1.6-2.3)
[2018-12-29 07:08] VITALS: BP 144/65; PULSE 64; TEMP 98.8
--- NOTE | 2018-12-29 08:45 | NUR ---
Pt is awake and A/Ox4, sitting up in bed. She does report having a nose bleed and large clot was on kleenex. Pt reports she "believes it has stopped." Pt remains on 2L O2 per NC, resp are even and unlabored. Bubbler is on. PICC to right upper is free of complications. Pt is up to restroom with walker + SBA. Heart is in NSR per tele. is at bedside. Denies any other needs.
[2018-12-29] MEDS ORDERED: DOXYCYCLINE 10100 MG PO (10:51)
[2018-12-29] MEDS ORDERED: LOPRESSOR 550 MG/TAB PO (10:51)
[2018-12-29] MEDS ORDERED: MAG-OX 400400 MG/TAB PO (10:51)
[2018-12-29] MEDS ORDERED: CORDARONE200 MG/TAB PO (10:51)
[2018-12-29] MEDS ORDERED: ELIQUIS 5MG PO (10:51)
[2018-12-29] MEDS ORDERED: TESSALON PERLE200 MG PO (10:51)
[2018-12-29 11:15] VITALS: BP 132/59; PULSE 60; TEMP 98.4
--- NOTE | 2018-12-29 11:59 | NUR ---
PATIENT REQUIRED 1LPM TO BE <90% WHILE AMBULATING.
--- NOTE | 2018-12-29 14:24 | NUR ---
The patient qualified for continuous oxygen. MOSES met with the patient and the patient's and presented and explained the Patient Choice Form for DME. The patient chose [facility]. Patient choice form signed by the patient and she was provided a copy. MOSES contacted and faxed the order to Bhargav at [facility]. MOSES awaiting approval. MOSES also presented and explained the IM form to the patient. The patient verbalized understanding, signed, and she was provided a copy.
--- NOTE | 2018-12-29 16:47 | NUR ---
Pt was discharged home from hospital. All discharge instructions and paperwork was reviewed with pt and who expressed understanding. PICC line removed by RUFUS Campbell. New prescriptions given. Pt was escorted out of hospital post home O2 delivery.
--- NOTE | 2018-12-29 16:51 | NUR ---
[facility] delivered the patient's oxygen to her room. The patient is to discharge back home with her today, 12/29, and home health services for senior living/PT/OT through [facility]. [facility] contacted and faxed the patient's discharge orders to Jessie at [facility]. No additional needs at this time.
== END 2018-12-29 16:49 | disposition home or self-care (01) | DRG 853 ==
LOC: COL.VAS 10:30 → MEDICAL 11:45 → ICU 22:10 → MEDICAL 12-22 17:28 → ICU 12-22 17:28 → MEDICAL 12-22 17:28 → ICU 12-25 15:08 → IMCU 12-26 10:18 → MEDICAL 12-27 13:50
PROVIDERS: Family Medicine; Hospitalist; Internal Medicine Critical Care Medicine; Internal Medicine Pulmonary Disease; Nurse Practitioner Family; Physician Assistant; Student in an Organized Health Care Education/Training Program; ADMIT Family Medicine
PROC: 02HV33Z Insertion of Infusion Device into Superior Vena Cava, Percutaneous Approach (ICD-10-PCS; 2018-12-25)
PROC: 06H03DZ Insertion of Intraluminal Device into Inferior Vena Cava, Percutaneous Approach (ICD-10-PCS; principal; 2018-12-26)
DX: A41.9 Sepsis, unspecified organism (principal); I26.99 Other pulmonary embolism without acute cor pulmonale; J18.1 Lobar pneumonia, unspecified organism; J96.01 Acute respiratory failure with hypoxia; I82.401 Acute embolism and thrombosis of unspecified deep veins of right lower extremity; N17.9 Acute kidney failure, unspecified; I10 Essential (primary) hypertension; E78.5 Hyperlipidemia, unspecified; M06.9 Rheumatoid arthritis, unspecified; K21.9 Gastro-esophageal reflux disease without esophagitis; E66.9 Obesity, unspecified; I48.0 Paroxysmal atrial fibrillation; M47.896 Other spondylosis, lumbar region; D64.9 Anemia, unspecified; H26.9 Unspecified cataract; R33.9 Retention of urine, unspecified; M17.11 Unilateral primary osteoarthritis, right knee; R04.0 Epistaxis; B96.0 Mycoplasma pneumoniae [M. pneumoniae] as the cause of diseases classified elsewhere; M47.9 Spondylosis, unspecified; Z68.32 Body mass index [BMI] 32.0-32.9, adult; Z86.718 Personal history of other venous thrombosis and embolism; Z96.652 Presence of left artificial knee joint; Z88.5 Allergy status to narcotic agent
CPT/HCPCS: 99222-AI; 99232-AI; 99233-AI; 99239; C1751; C1880; C1894; J0171; J0282; J1200; J1644; J1940; J2250; J2543; J2930; J3010; J3370; J3475; J7030; J7040; J7050; J7060; Q9967

== ENCOUNTER → 2019-02-02 | Outpatient (CLI) | payer MEDICARE, OTHER ==
[~2019-02-02] MED LIST changes: +CORDARONE200 MG/TAB PO; +DOXYCYCLINE 10100 MG PO; +ELIQUIS 5MG PO; +LEVAQUIN 5500 MG/TA1 PO; +LOPRESSOR 550 MG/TAB PO; +MAG-OX 400400 MG/TAB PO; +NIZORAL CR 30GM TOP; +SIMPONI50 MG/0.5 SC; +TEMOVATE0.052 TOP; +TESSALON PERLE200 MG PO
== END ==
LOC: COL.VAS 07:35
DX: I82.431 Acute embolism and thrombosis of right popliteal vein (principal); I82.411 Acute embolism and thrombosis of right femoral vein

== ENCOUNTER → 2019-02-23 | Outpatient (CLI) | payer MEDICARE, OTHER | LOC: COL.RAD 07:24 | DX: I08.3 Combined rheumatic disorders of mitral, aortic and tricuspid valves (principal); J18.9 Pneumonia, unspecified organism | CPT/HCPCS: Q9967 ==

== ENCOUNTER 2019-03-17 03:41 | Inpatient (IN) | payer MEDICARE, OTHER ==
[2019-03-17] VITALS (144 sets, daily range): BP systolic 106–163; BP diastolic 48–68; PULSE 48–50; TEMP 97.4–98; O2SAT 91–100
[~2019-03-17] VITALS: Ht 165.1 cm; Wt 81.5 kg
[2019-03-17 04:03] LABS: BASO % 0.3 % (0.0-2.0); EOS % 0.1 % (0-4.0); GRAN # 8.3 (1.4-6.5); GRAN % 73.4 % (42.2-75.2); HEMATOCRIT 37.6 % (37.0-47.0); HEMOGLOBIN 11.7 g/dl (12.5-16.0); LYMPH % 17.5 % (20.0-51.0); MEAN CELL VOLUME 95 fl (80.0-100.0); MEAN CORPUSCULAR HEMOGLOBIN 30 pg (27.0-31.0); MEAN CORPUSCULAR HGB CONC 31 g/dl (33.0-37.0); MEAN PLATELET VOLUME 10.6 fl (7.4-10.4); MONO # 0.9 (0.1-0.6); MONO % 8.3 % (1.7-9.3); PLATELET COUNT 321 K/mm3 (130-400); RED BLOOD COUNT 3.95 M/mm3 (4.10-5.30); REDCELL DISTRIBUTION WIDTH-CV 17.2 % (11.5-14.5)
[2019-03-17 04:11] LABS: ALBUMIN 2.8 gm/dL (3.5-5.0); BILIRUBIN,TOTAL 0.7 mg/dL (0.0-1.0); CREATININE, serum 1.26 (0.52-1.25); TOTAL PROTEIN 6.6 gm/dL (6.4-8.2)
[2019-03-17 04:22] LABS: CALCIUM 14.4 mg/dL (8.4-10.2); POTASSIUM 2.8 mmol/L (3.4-5.0)
[2019-03-17 04:43] LABS: INR 1.7 (0.8-3.0); PROTHROMBIN TIME 19.8 SECONDS (9.7-12.8)
[2019-03-17 04:46] LABS: MAGNESIUM 1.6 mg/dL (1.6-2.3)
[2019-03-17 04:49] LABS: COLLECTION METHOD CATHETER
[2019-03-17 04:58] LABS: TROPONIN-I 0.033 ng/mL (0.000-0.035)
[2019-03-17 04:59] LABS: PH 6 (5-8); SQUAMOUS EPITHELIAL None Seen /hpf; URINE APPEARANCE Hazy; URINE BACTERIA None Seen /hpf; URINE BILIRUBIN Negative (NEGATIVE); URINE BLOOD 1+ (NEGATIVE); URINE CALCIUM OXALATE CRYSTAL Present /hpf; URINE COLOR Yellow; URINE GLUCOSE Negative (NEGATIVE); URINE KETONE Negative (NEGATIVE); URINE LEUKOCYTE ESTERASE Negative (NEGATIVE); URINE NITRATE Negative (NEGATIVE); URINE PROTEIN(semi-quant) 1+ (NEGATIVE); URINE UROBILINOGEN Negative (NEGATIVE)
--- NOTE | 2019-03-17 07:07 | NUR ---
ER called at this time to recieve report, no answer, will call back
--- NOTE | 2019-03-17 07:42 | NUR ---
ICU 4 room requires cleaning by Cassandra HATCH RN notified of delay.
--- NOTE | 2019-03-17 07:45 | NUR ---
Prior to pt arriving MD Pablo and MD David called to notify of pt being on levophed and not appearing well per ER MD notes and informed them of lab data.
--- NOTE | 2019-03-17 08:15 | NUR ---
Pt arrived at this time with Sj. Pt transfered self from stretcher to ICU bed with moderate difficulty and abdominal soreness. Monitors and automated vitals attached. Levophed titrated as ordered. HARMONY Campbell called for PICC Line placement at [id number] MD Taiwo and MD David in room with pt and discussing reccomending transfer to higher level of care d/t findings on CT scan of abdomen. Pt and agree on transfer - [facility]MONY [facility] called. 0820 Shannan here for PICC Placement 0835 MD Pablo on unit with Hosptialist team including Pharmacist Gato. 0900 PICC inserted - confirmed with XRay - Levophed gtt transfered from [facility] to PICC line 0905 Lab in room for STAT draw 1135 Flight crew here to brick picker pt 1150 Pt departed with Flight Crew - Pt AAOx4 vitals remain stable
[2019-03-17 09:27] LABS: MEAN CELL VOLUME 96 fl (80.0-100.0); MEAN CORPUSCULAR HGB CONC 31 g/dl (33.0-37.0); PLATELET COUNT 253 K/mm3 (130-400); RED BLOOD COUNT 2.78 M/mm3 (4.10-5.30); REDCELL DISTRIBUTION WIDTH-CV 17.4 % (11.5-14.5)
[2019-03-17 09:30] LABS: CALCIUM 11.9 mg/dL (8.4-10.2); CREATININE, serum 1.25 (0.52-1.25); POTASSIUM 3.3 mmol/L (3.4-5.0)
[2019-03-17 09:39] LABS: BILIRUBIN UNCONJUGATED 0.3 mg/dL (0.0-1.1); BILIRUBIN,TOTAL 0.2 mg/dL (0.0-1.0); TOTAL PROTEIN 4.9 gm/dL (6.4-8.2)
--- NOTE | 2019-03-17 09:39 | NUR ---
MD Pablo notified of drop in H&H - PRBC ordered - Blood bank notified
[2019-03-17 09:41] LABS: HEMATOCRIT 26.7 % (37.0-47.0); HEMOGLOBIN 8.2 g/dl (12.5-16.0); MEAN CORPUSCULAR HEMOGLOBIN 29 pg (27.0-31.0)
[2019-03-17 09:51] LABS: TROPONIN-I 0.035 ng/mL (0.000-0.035)
[2019-03-17 10:13] LABS: BAND 9 % (0-10); LYMPHOCYTE 5 % (20.0-51.0); NEUTROPHILS 84 % (42.0-75.2)
[2019-03-17 10:14] LABS: ANISOCYTOSIS 1+; HYPOCHROMIA 3+
[2019-03-17 10:18] LABS: SCHISTOCYTES 1+
[2019-03-17 10:21] LABS: MAGNESIUM 1.5 mg/dL (1.6-2.3); PHOSPHOROUS 4.1 mg/dL (2.5-4.5)
--- NOTE | 2019-03-17 10:39 | NUR ---
Initial visit; Called by Social Work, Industrial Laborer spoke with patient's , offering spiritual care. told his Industrial Laborer had settled him down. Industrial Laborer contacted patient's advent per request with immediate information with the understanding they would receive more information once patient is settled in at [facility]. Patient and thanked Industrial Laborer for help.
--- NOTE | 2019-03-17 12:23 | NUR ---
Report phoned to HARMONY Wiggins ([facility])
--- NOTE | 2019-03-17 13:40 | NUR ---
The patient was tranferred to [facility] for further care.
== END 2019-03-17 11:50 | disposition short-term general hospital (02) | DRG 871 ==
LOC: COL.ER 03:41 → ICU 06:32
PROVIDERS: Emergency Medicine; Internal Medicine Pulmonary Disease; ADMIT Family Medicine
PROC: 02HV33Z Insertion of Infusion Device into Superior Vena Cava, Percutaneous Approach (ICD-10-PCS; principal; 2019-03-17)
DX: A41.9 Sepsis, unspecified organism (principal); K63.1 Perforation of intestine (nontraumatic); K85.90 Acute pancreatitis without necrosis or infection, unspecified; R65.21 Severe sepsis with septic shock; J18.9 Pneumonia, unspecified organism; N39.0 Urinary tract infection, site not specified; M06.9 Rheumatoid arthritis, unspecified; K21.9 Gastro-esophageal reflux disease without esophagitis; M19.90 Unspecified osteoarthritis, unspecified site; I48.91 Unspecified atrial fibrillation; E78.5 Hyperlipidemia, unspecified; E66.9 Obesity, unspecified; E87.6 Hypokalemia; N18.9 Chronic kidney disease, unspecified; E83.42 Hypomagnesemia; Z96.652 Presence of left artificial knee joint; Z98.51 Tubal ligation status; Z87.442 Personal history of urinary calculi; Z86.711 Personal history of pulmonary embolism; Z79.01 Long term (current) use of anticoagulants; Z98.42 Cataract extraction status, left eye; Z98.41 Cataract extraction status, right eye; Z88.1 Allergy status to other antibiotic agents; Z88.5 Allergy status to narcotic agent; Z86.718 Personal history of other venous thrombosis and embolism
CPT/HCPCS: 99223-AI; A4216; C1751; C1892; J0696; J2185; J2405; J3010; J3370; J3480; J7030; J7050; J7060; P9016; Q9967